=== PATIENT | male | born 1940 | race Caucasian/White ===

== ENCOUNTER 2022-02-11 14:42 | Inpatient (IN) ==
[2022-02-11] MEDS ORDERED: FAMOTIDINE 20MG IV PUSH 20 MG/5 ML SYR IV STA (15:41)
[2022-02-11] MEDS ORDERED: PANTOprazole 80 MG in DEXTROSE 5% 100 ML IV STA (15:41)
[2022-02-11] MEDS ORDERED: SODIUM CHLORIDE 0.9% 250 ML IV PRN ×3 (15:41→20:33)
[2022-02-11] MEDS ORDERED: SODIUM CHLORIDE 0.9% 500 ML IV SCH (15:45)
[2022-02-11 16:20] LABS: Basophils # (auto) 0.01 K/uL (0-0.2); Basophils % (auto) 0.1 %; Eosinophils # (auto) 0.18 K/uL (0-0.5); Eosinophils % (auto) 2.2 %; Hematocrit (blood only) 25.2 % (42-52); Hemoglobin 7.8 g/dL (14.0-18.0); Immature Granulocytes # (auto) 0.12 K/uL (0.00-0.02); Immature Granulocytes % (auto) 1.5 %; Lymphocytes # (auto) 1.35 K/uL (1.2-3.4); Lymphocytes % (auto) 16.8 %; Mean Corpuscular Hemoglobin 32.4 pg (25-34); Mean Corpuscular Volume 104.6 fL (80-100); Mean Platelet Volume 9.5 fL (7.4-10.4); Monocytes # (auto) 0.72 K/uL (0.11-0.59); Neutrophils # (auto) 5.64 K/uL (1.4-6.5); Neutrophils % (auto) 70.4 %; Platelet Count 195 K/uL (130-400); RDW Coefficient of Variation 20.3 % (11.5-14.5); RDW Standard Deviation 75.4 fL (36.4-46.3); Red Blood Count 2.41 M/uL (4.7-6.1); White Blood Count 8.02 K/uL (4.8-10.8)
--- NOTE | 2022-02-11 16:29 | Emergency Department Note ---
Impression & Plan Acute GI bleeding, Black stool, Anemia, Acute dehydration, Acute hyperkalemia ED Provider Note NAME: EVERETT MCMANUS AGE: 81 SEX: M : 1940 ARRIVES VIA: Ambulance INFORMANT: [Patient][nursing] ED PROVIDER(S): [Marbin Márquez MD] CHIEF COMPLAINT: GI bleeding HISTORY OF PRESENT ILLNESS: Patient is an 81-year-old male who underwent a recent procedure for aortic aneur ysm. He has been at rehab since being discharged. The patient is on aspirin, Plavix and is receiving Lovenox subcu. The patient has had at least a week of some darker, black stool. No pain. The patient did receive 2 packed red blood cell transfusions over the last week. Today, his hemoglobin was in the upper sevens, he was sent for evaluation. The patient did have his aspirin, Plavix and Lovenox held today. He currently feels fairly well. He is not short of breath. He has no abdominal pain. He does admit to a decreased appetite lately and a lack of wanting to eat. He has a feeding tube that is in the left upper quadrant. There has been no fever. He has not been coughing more than usual. He denies any recent fall or trauma. He has no history of previous GI bleeding. REVIEW OF SYSTEMS: See HPI for pertinent positives and negatives. A total of ten systems were reviewed and were otherwise negative. PMHx/PSHx: See Below SOCIAL HISTORY: See Below. PHYSICAL EXAM: GENERAL: Patient is in no acute distress. HEENT: No acute trauma, normocephalic atraumatic, mucous membranes dry, no nasal congestion, no scleral icterus. NECK: No stridor, no adenopathy, no meningismus, trachea is midline. LUNGS: Clear to auscultation bilaterally, no wheeze, no rhonchi, breath sounds equal. HEART: Very distant heart tones secondary to the history of COPD, rhythm seems regular. ABDOMEN: Soft, nontender, bowel sounds positive, no hernias, no peritonitis. Feeding tube in the left upper quadrant. EXTREMITIES: No cyanosis or edema, full range of motion of all the joints wit hout pain or difficulty, no signs for acute trauma. NEUROLOGIC: Oriented x 3, no acute motor or sensory deficits, no focal weakness. SKIN: No rash, no jaundice, no diaphoresis. Pale. DIFFERENTIAL DIAGNOSIS: Diverticulosis, AVM, coagulopathy, colitis, inflammatory bowel disease, malignancy, Nanda-Velez tear, esophagitis, peptic ulcer disease, variceal bleed, gastritis, epistaxis, fissure, hemorrhoids, as well as other pathologies. EMERGENCY DEPARTMENT COURSE/PROCEDURES: ECG: Indication was GI bleed. The ECG shows a sinus rhythm with a first- degree AV block. The rate is 83. There is a potential old septal infarct. There is no ST elevation, no PVCs. The QTc is 444. Continuous Cardiac Monitoring: An order was placed for continuous cardiac monitoring. The monitor shows a rate of 79 with normal sinus rhythm. Critical Care Note: I have personally spent 51 minutes of critical care time in the direct management of this patient. This includes bedside care, interpretation of diagnostic studies, and testing, discussion with consultants, patient, and family members, and other required patient management activities. This 51 minutes is in excess of all separately billable procedures. MEDICAL DECISION MAKING: There is no leukocytosis. The patient is anemic with a hemoglobin of 7.8. There is a normal platelet count. No coagulopathy. Potassium is a bit high at 5.2, BUN also somewhat elevated. There is a normal creatinine. Lactic acid level is not elevated making sepsis and bowel ischemia less likely. No worrisome liver enzyme elevation. ECG shows a sinus rhythm with a first-degree AV block, no obvious acute ischemia. Cardiac enzyme testing x1 is not consistent with acute cardiac injury. No evidence for pancreatitis by our te sting. Covid test was negative. Chest x-ray does not show pneumonia or CHF. Abdominal and pelvis CT does not show any leaking from his abdominal aneurysm repair. There is a chronic hematoma seen. No evidence for bowel obstruction, no evidence for active hemorrhage. The patient received IV saline, 500 cc. He was given IV Protonix, IV Pepcid. Blood was ordered for transfusion but held as his hemoglobin was above 7. I suspect his hemoglobin will drop with proper hydration though. A consent for a blood transfusion was signed and completed and placed on his chart. The patient presents with persistent black stool and presumed GI bleeding for the last week. He has already received 2 separate transfusions of packed red blood cells as an outpatient. His hemoglobin is low today and at this point, a hospital stay, further work-up is warranted. He likely is bleeding from an upper GI source and an endoscopy may be performed during this hospital stay. I did speak with the patient and case checker, the on-call hospitalist was consulted. Past Med/Surg History Medical History Abdominal aortic aneurysm - with rupture Abdominal pain with vomiting Acute renal failure Aortic aneurysm Aspiration pneumonia BPH (benign prostatic hyperplasia) Chronic kidney disease Chronic kidney disease (CKD) stage 3 Chronic obstructive pulmonary disease Congestive heart failure Coronary artery disease Delirium Hyperlipemia Hypertension Iliac artery aneurysm Ischemic heart disease PEG tube malfunction 01/21/2022 Peripheral vascular disease Peripheral vascular disease Severe malnutrition Surgical History Coronary angioplasty status with stent placements 2018 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 Social History Smoking Status: Former smoker Preferred Language: Jordanian Feels Safe at Home: Yes Allergies Allergies Allergy/AdvReac Type Severity Reaction Status Date / Time No Known Allergies Allergy Unverified 02/11/22 15:16 Home Meds Home Medications Medication Instructions Recorded Confirmed acetaminophen 650 mg/20.3 mL oral 650 mg PO Q4 PRN 02/08/22 02/11/22 solution atorvastatin 40 mg tablet 40 mg PO QDD 02/08/22 02/11/22 finasteride 5 mg tablet 5 mg PO DAILY 02/08/22 02/11/22 pantoprazole 40 mg granules 40 mg PO BID 02/08/22 02/11/22 delayed-release for susp in packet (Protonix) polyethylene glycol 3350 17 gram 17 g PO QDD PRN 02/08/22 02/11/22 oral powder packet sennosides 8.6 mg-docusate sodium 1 tab-cap PO QDD PRN 02/08/22 02/11/22 50 mg tablet (Senokot-S) sodium phosphates 19 gram-7 133 ml VT DAILY PRN 02/08/22 02/11/22 gram/118 mL enema (Enema) tamsulosin 0.4 mg capsule 0.4 mg PO DAILY 02/08/22 02/11/22 trazodone 50 mg tablet 50 mg PO HS 02/08/22 02/11/22 bisacodyl 10 mg rectal suppository 10 mg VT DAILY PRN 02/11/22 02/11/22 docusate sodium 100 mg capsule 100 mg PO BID 02/11/22 02/11/22 magnesium hydroxide 2,400 mg/10 mL 1,030 ml PO DAILY PRN 02/11/22 02/11/22 oral suspension (Milk Of Magnesia Concentrated) nystatin 100,000 unit/gram topical 1 applic TOPICAL BID 02/11/22 02/11/22 cream Results & Data (ED) Vital Signs Vital Signs - 24 hr 02/11/22 15:10 02/11/22 16:37 Temperature 36.8 C Temperature Source Oral Pulse Rate 82 Pulse Rate [Finger] 79 Pulse Rhythm Regular Pulse Rhythm [Finger] Regular Pulse Strength Normal Pulse Strength [Finger] Normal Respiratory Rate 18 18 Respiratory Effort / Characteristics Non-Labored Non-Labored Respiratory Depth Normal Normal Respiratory Pattern Regular Blood Pressure 120/59 L Blood Pressure [Left Arm] 130/70 Blood Pressure Mean 79 Blood Pressure Mean [Left Arm] 90 Blood Pressure Position Lying Blood Pressure Position [Left Arm] Sitting Pulse Oximetry 93 95 Oxygen Delivery Method Room Air Room Air Sepsis Recent Fever Within 48 Hours No Sepsis New/Unexplained Change in Mental Status No Sepsis Action Taken by Nursing No Action Required Home Medications Current Medication List: was personally reviewed by me Laboratory Data Attestation: I reviewed the patient's lab results. Result diagrams: 02/11/22 16:00 02/11/22 16:00 Lab Results 02/11/22 02/11/22 02/11/22 Range/Units 16:00 16:00 16:00 WBC 8.02 (4.8-10.8) K/uL RBC 2.41 L (4.7-6.1) M/uL Hgb 7.8 L (14.0-18.0) g/dL Hct 25.2 L (42-52) % MCV 104.6 H (80-100) fL MCH 32.4 (25-34) pg MCHC 31.0 L (32-36) g/dL RDW Std Deviation 75.4 H (36.4-46.3) fL RDW Coeff of Alejandra 20.3 H (11.5-14.5) % Plt Count 195 (130-400) K/uL MPV 9.5 (7.4-10.4) fL Immature Gran % (Auto) 1.5 % Neut % (Auto) 70.4 % Lymph % (Auto) 16.8 % Owsley % (Auto) 9.0 % Eos % (Auto) 2.2 % Baso % (Auto) 0.1 % Neut # (Auto) 5.64 (1.4-6.5) K/uL Lymph # (Auto) 1.35 (1.2-3.4) K/uL Owsley # (Auto) 0.72 H (0.11-0.59) K/uL Eos # (Auto) 0.18 (0-0.5) K/uL Baso # (Auto) 0.01 (0-0.2) K/uL Immature Gran # (Auto) 0.12 H (0.00-0.02) K/uL Polychromasia 1+ Poikilocytosis Present Anisocytosis Present PT (9.0-12.0) Seconds INR (0.9-1.1) APTT (21.0-31.0) Seconds PTT Ratio Sodium 140 (136-145) mmol/L Potassium 5.2 H (3.5-5.1) mmol/L Chloride 106 (98-107) mmol/L Carbon Dioxide 30 (21-32) mmol/L Anion Gap 4 (3-11) BUN 52 H (6-23) mg/dl Creatinine 1.03 (0.6-1.4) mg/dl Est Cr Clr Drug Dosing 47.2 ml/min Est GFR ( Amer) 78.0 ml/min Est GFR (Non-Af Amer) 67.3 ml/min BUN/Creatinine Ratio 50.5 H (10-20) Glucose 87 (70-99(Fasting)) mg/dl Lactate (0.4-2.0) mmol/L Calcium 8.4 L (8.5-10.1) mg/dl Ionized Calcium (1.12-1.32) mmol/L Total Bilirubin 0.5 (0.2-1.0) mg/dl AST 28 (13-39) U/L ALT 35 (7-52) U/L Alkaline Phosphatase 116 H (34-104) U/L Troponin I < 0.03 (0-0.04) ng/ml Total Protein 5.7 L (6.0-8.3) gm/dl Albumin 2.7 L (3.4-5.0) gm/dl Globulin 3.0 (2.5-4.0) gm/dl Albumin/Globulin Ratio 0.9 (0.9-2) Lipase 46 (11-82) U/L SARS-CoV-2, RNA, NAAT (NEGATIVE) Blood Type O Positive Antibody Screen NEGATIVE Crossmatch See Detail 02/11/22 02/11/22 02/11/22 Range/Units 16:00 17:10 17:22 WBC (4.8-10.8) K/uL RBC (4.7-6.1) M/uL Hgb (14.0-18.0) g/dL Hct (42-52) % MCV (80-100) fL MCH (25-34) pg MCHC (32-36) g/dL RDW Std Deviation (36.4-46.3) fL RDW Coeff of Alejandra (11.5-14.5) % Plt Count (130-400) K/uL MPV (7.4-10.4) fL Immature Gran % (Auto) % Neut % (Auto) % Lymph % (Auto) % Owsley % (Auto) % Eos % (Auto) % Baso % (Auto) % Neut # (Auto) (1.4-6.5) K/uL Lymph # (Auto) (1.2-3.4) K/uL Owsley # (Auto) (0.11-0.59) K/uL Eos # (Auto) (0-0.5) K/uL Baso # (Auto) (0-0.2) K/uL Immature Gran # (Auto) (0.00-0.02) K/uL Polychromasia Poikilocytosis Anisocytosis PT 11.2 (9.0-12.0) Seconds INR 1.1 (0.9-1.1) APTT 25.6 (21.0-31.0) Seconds PTT Ratio 0.9 Sodium (136-145) mmol/L Potassium (3.5-5.1) mmol/L Chloride (98-107) mmol/L Carbon Dioxide (21-32) mmol/L Anion Gap (3-11) BUN (6-23) mg/dl Creatinine (0.6-1.4) mg/dl Est Cr Clr Drug Dosing ml/min Est GFR ( Amer) ml/min Est GFR (Non-Af Amer) ml/min BUN/Creatinine Ratio (10-20) Glucose (70-99(Fasting)) mg/dl Lactate 0.6 (0.4-2.0) mmol/L Calcium (8.5-10.1) mg/dl Ionized Calcium (1.12-1.32) mmol/L Total Bilirubin (0.2-1.0) mg/dl AST (13-39) U/L ALT (7-52) U/L Alkaline Phosphatase (34-104) U/L Troponin I (0-0.04) ng/ml Total Protein (6.0-8.3) gm/dl Albumin (3.4-5.0) gm/dl Globulin (2.5-4.0) gm/dl Albumin/Globulin Ratio (0.9-2) Lipase (11-82) U/L SARS-CoV-2, RNA, NAAT NEGATIVE (NEGATIVE) Blood Type Antibody Screen Crossmatch 02/11/22 Range/Units 17:22 WBC (4.8-10.8) K/uL RBC (4.7-6.1) M/uL Hgb (14.0-18.0) g/dL Hct (42-52) % MCV (80-100) fL MCH (25-34) pg MCHC (32-36) g/dL RDW Std Deviation (36.4-46.3) fL RDW Coeff of Alejandra (11.5-14.5) % Plt Count (130-400) K/uL MPV (7.4-10.4) fL Immature Gran % (Auto) % Neut % (Auto) % Lymph % (Auto) % Owsley % (Auto) % Eos % (Auto) % Baso % (Auto) % Neut # (Auto) (1.4-6.5) K/uL Lymph # (Auto) (1.2-3.4) K/uL Owsley # (Auto) (0.11-0.59) K/uL Eos # (Auto) (0-0.5) K/uL Baso # (Auto) (0-0.2) K/uL Immature Gran # (Auto) (0.00-0.02) K/uL Polychromasia Poikilocytosis Anisocytosis PT (9.0-12.0) Seconds INR (0.9-1.1) APTT (21.0-31.0) Seconds PTT Ratio Sodium (136-145) mmol/L Potassium (3.5-5.1) mmol/L Chloride (98-107) mmol/L Carbon Dioxide (21-32) mmol/L Anion Gap (3-11) BUN (6-23) mg/dl Creatinine (0.6-1.4) mg/dl Est Cr Clr Drug Dosing ml/min Est GFR ( Amer) ml/min Est GFR (Non-Af Amer) ml/min BUN/Creatinine Ratio (10-20) Glucose (70-99(Fasting)) mg/dl Lactate (0.4-2.0) mmol/L Calcium (8.5-10.1) mg/dl Ionized Calcium 1.14 (1.12-1.32) mmol/L Total Bilirubin (0.2-1.0) mg/dl AST (13-39) U/L ALT (7-52) U/L Alkaline Phosphatase (34-104) U/L Troponin I (0-0.04) ng/ml Total Protein (6.0-8.3) gm/dl Albumin (3.4-5.0) gm/dl Globulin (2.5-4.0) gm/dl Albumin/Globulin Ratio (0.9-2) Lipase (11-82) U/L SARS-CoV-2, RNA, NAAT (NEGATIVE) Blood Type Antibody Screen Crossmatch Administered Medications Discontinued Medications Sodium Chloride (Nss) 500 mls @ 999 mls/hr IV .Q31M PRAVIN Stop: 02/11/22 16:15 Last Infusion: 02/11/22 17:02 Dose: 999 mls/hr Documented by: [id number] Admin: 02/11/22 16:31 Dose: 999 mls/hr Documented by: [id number] Famotidine (Pepcid 20mg Iv Push) 20 mg in 5 mls @ 2.5 mls/min IV NOW STA Stop: 02/11/22 15:42 Last Admin: 02/11/22 16:32 Dose: 2.5 mls/min Documented by: [id number] Pantoprazole Sodium 80 mg/ (Dextrose) 100 mls @ 400 mls/hr IV ONE STA Stop: 02/11/22 15:55 Last Infusion: 02/11/22 16:47 Dose: 400 mls/hr Documented by: [id number] Admin: 02/11/22 16:32 Dose: 400 mls/hr Documented by: [id number] Ioversol (Optiray 320 100ml) 95 ml IV ONCE ONE Stop: 02/11/22 18:20 Last Admin: 02/11/22 18:24 Dose: 95 ml Documented by: [id number] Imaging Data Radiologist's Impression: Abdomen/Pelvis CT 02/11/22 15:41 CT abd pelvis IV con only CLINICAL HISTORY: gi bleeding . Previous aortoiliac bypass. COMPARISON STUDY: No previous studies for comparison. CT DOSE: 292.18 mGy.cm TECHNIQUE: Standard CT of the Abdomen and Pelvis was performed with IV contrast. A dose lowering technique was utilized adhering to the principles of ALARA. Contrast Volume: Optiray 320, 95 ml. The patient did not receive oral contrast. FINDINGS: Lung base: The heart is enlarged with previous aortic valve replacement. There is elevation of the right hemidiaphragm with crowding the bronchovascular markings at the right lung base. Lung bases are otherwise clear. Abdominal cavity: There is no evidence for abdominal mass, adenopathy or ascites. However, there is evidence for a large retroperitoneal hematoma on the right. It has a chronic appearance with no increased attenuation density of the fluid and no contrast extending into the fluid collection. It is behind the right kidney and extends for a craniocaudad distance of approximately 17 cm. There is approximately 8.4 cm in width and 5.2 cm in AP diameter. It has a mildly enhancing wall characteristic of a chronic hematoma. No free abdominal or pelvic fluid is seen. Liver: There is homogeneous attenuation of the liver parenchyma. There is no evidence for enhancing mass lesion. There is mild hepatomegaly. Spleen: There is homogeneous attenuation of the splenic parenchyma. There is no enhancing mass lesion. There is mild splenomegaly. Pancreas: There is homogeneous attenuation of the pancreatic parenchyma. There is no evidence for mass lesion or peripancreatic fluid collection. Gall Bladder: The gallbladder is partially contracted. There appears to be pericholecystic edema present. Follow-up gallbladder ultrasound is recommended for further evaluation. Adrenal glands: The adrenal glands are normal in size and attenuation. There is no evidence for enhancing mass lesion. Kidneys: There is homogeneous attenuation of the renal parenchyma bilaterally. There is moderate hydronephrosis and hydroureter on the right to the level of the retroperitoneal hematoma. This is most likely compressing the distal ureter. No renal calculi are seen. There is no evidence for left-sided hydronephrosis or hydroureter. Bilateral renal cysts are present. No enhancing renal masses are identified. Bowel: A PEG tube is in place. The bowel loops are normally placed within the abdomen and pelvis without evidence for dilatation or obstruction. There is no evidence for mass lesion. There are no inflammatory changes present. There is no evidence for free air. Bladder: The bladder is distended with no evidence for focal mass, calculus or diverticulum. There is diffuse thickening of bladder wall characteristic of chronic bladder outlet obstruction. : There is no evidence for pelvic mass or adenopathy. There is no evidence for pelvic ascites. The prostate is mildly to moderately large. Vasculature: There is an aortobiiliac graft in place for a large abdominal aortic aneurysm. There is no evidence for leakage of contrast outside the stent. 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 The stent is in place extending through the dilatation. Additionally, there is a fluid collection seen surrounding the proximal right femoral artery. This measures approximately 3.9 x 3.5 cm and is suspicious for pseudoaneurysm. Ultrasound could be obtained for further evaluation. There is no contrast present within this fluid collection. Osseous structures: There is no acute osseous pathology. The patient is status post previous internal fixation right femoral neck. Degenerative changes are present within the spine. IMPRESSION: 1. 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 2. Status post aortobiiliac grafting with no evidence for leakage from the graft. 3. 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 4. Contracted gallbladder with evidence for pericholecystic edema. Gallbladder ultrasound is recommended for further evaluation. 5. Splenomegaly. 6. Additional nonacute findings are delineated above. ACT 112: Negative or not required by law. Electronically signed by: Dionicio Boswell M.D. 02/11/2022 6:50 PM Chest X-Ray 02/11/22 15:41 XR chest 1V portable CLINICAL HISTORY: gi bleeding. Evaluate cardiopulmonary status COMPARISON STUDY: No previous studies for comparison. TECHNIQUE: 1 view of the chest FINDINGS: Single frontal view of the chest demonstrates the cardiomediastinal silhouette to be within normal limits. There are patchy, ill-defined alveolar opacities pre sent involving both lungs, left greater than right. This probably represents chronic fibrotic change. However, an early viral type pneumonitis cannot be excluded. Follow-up would be helpful for further evaluation. There is no evidence for pleural effusion. There is no evidence for vascular congestion. There is no acute osseous pathology. There is evidence for an aortic graft in place. IMPRESSION: 1. Patchy ill-defined alveolar opacities involving both lungs, left greater than right. This probably represents chronic fibrotic change. However, early viral type pneumonitis cannot be excluded. ACT 112: Negative or not required by law. Electronically signed by: Dionicio Boswell M.D. 02/11/2022 4:28 PM Discharge Plan Visit Data Chief Complaint: GI Bleed ED Provider: Marbin Márquez ED Midlevel Provider: Vladislav Paris Discharge Problem: Acute GI bleeding, Black stool, Anemia, Acute dehydration, Acute hyperkalemia Patient Disposition: Admitted As Inpatient Condition: Fair Discharge Instructions Interventions: ED Discharge Assessment Last Done: 02/11/22 18:20
--- NOTE | 2022-02-11 16:29 | XRay Report ---
XR chest 1V portable CLINICAL HISTORY: gi bleeding. Evaluate cardiopulmonary status COMPARISON STUDY: No previous studies for comparison. TECHNIQUE: 1 view of the chest FINDINGS: Single frontal view of the chest demonstrates the cardiomediastinal silhouette to be within normal li mits. There are patchy, ill-defined alveolar opacities present involving both lungs, left greater daljit n right. This probably represents chronic fibrotic change. However, an early viral type pneumonitis c annot be excluded. Follow-up would be helpful for further evaluation. There is no evidence for pleura l effusion. There is no evidence for vascular congestion. There is no acute osseous pathology. There is evidence for an aortic graft in place. IMPRESSION: 1. Patchy ill-defined alveolar opacities involving both lungs, left greater than right. This probably represents chronic fibrotic change. However, early viral type pneumonitis cannot be excluded. ACT 112: Negative or not required by law. Electronically signed by: Dionicio Boswell M.D. 02/11/2022 4:28 PM
[2022-02-11 16:33] LABS: INR 1.1 (0.9-1.1); Partial Thromboplastin Ratio 0.9; Partial Thromboplastin Time 25.6 Seconds (21.0-31.0); Prothrombin Time 11.2 Seconds (9.0-12.0)
[2022-02-11 16:41] LABS: Troponin I < 0.03 ng/ml (0-0.04)
[2022-02-11 16:43] LABS: Anisocytosis Present; Poikilocytosis Present; Polychromasia 1+
[2022-02-11 16:57] LABS: Alanine Aminotransferase 35 U/L (7-52); Albumin Globulin Ratio 0.9 (0.9-2); Albumin Level 2.7 gm/dl (3.4-5.0); Alkaline Phosphatase 116 U/L (34-104); Anion Gap 4 (3-11); Aspartate Aminotransferase 28 U/L (13-39); BUN Creatinine Ratio 50.5 (10-20); Bilirubin,Total 0.5 mg/dl (0.2-1.0); Blood Urea Nitrogen 52 mg/dl (6-23); Calcium 8.4 mg/dl (8.5-10.1); Carbon Dioxide 30 mmol/L (21-32); Chloride 106 mmol/L (98-107); Creatinine Clr Calc Pharmacy 47.2 ml/min; Est GFR (Non-African American) 67.3 ml/min; Glucose 87 mg/dl (70-99(Fasting)); Lipase 46 U/L (11-82); Potassium 5.2 mmol/L (3.5-5.1); Sodium 140 mmol/L (136-145); Total Protein 5.7 gm/dl (6.0-8.3)
--- NOTE | 2022-02-11 17:00 | History & Physical Report ---
Date of Service February 11, 2022 Assessment & Plan (1) GI bleed: Plan: GI Bleed unspecified source- likely UGI with dark stools and elevated BUN - Risk factor acute illness and stay in ICU with PEG tube placement, on ASA and Lovenox - Ischemic colitis following AAA repair also noted- with endoscopy performed at that time - Protonix drip already started in EMD- will continue as this is already in place- transition to BID dosing when appropriate - GI consultation placed- appreciate assistance - NPO - Transfuse 1 unit PRBC now for symptomatic anemia and likely continued bleeding - CBC tonight and in AM - CTA abd/pelvis pending (2) Blood loss anemia: Plan: As above- CTA - pending - Likely related to UGI bleed with presentation history - R/o repair leak or other occult blood loss - If HGB continues to downtrend or shock without GI source- repeat CTA of aorta (3) CKD (chronic kidney disease), stage III: Plan: [employer] stable BUN elevated likely to # 1 - replete volume with PRBC - Follow - avoid further nephrotoxic medications as able (4) Abnormal CT of the abdomen: Plan: Noting right retroperitoneal collection as well as right femoral aneurysm - Will obtain ultrasound of the right femoral to evaluate- not the acute cause of his decreased HGB - - 3.9 x 3.5 cm and is suspicious for pseudoaneurysm - Appears as old retroperitoneal without contrast infiltration - Note of previous AAA with endovascular repair inside previous aneurysm (5) Abdominal aortic aneurysm: Plan: Repair reported 2015 and in February 09 presented to [facility] with rupture and shock - Repaired - hold Lovenox and ASA- would need to restart as soon as feasible from bleeding perspective - Follow BP - Follow CTA abdomen and pelvis (6) Hyperlipemia: Plan: Continue statin (7) Severe malnutrition: Plan: BMI 18- tolerating minced and moist diet per [facility] notes as well as PEG tube support feeding - resume following GI evaluation - NPO for now (8) Coronary artery disease: Plan: Unsure of diagnosis- denies he has had history of AK - Hold ASA as above - BP controlled - not on any other disease modifying medications (9) Congestive heart failure: Plan: As above- Unsure of etiology- likely HFpEF - did need diuresed following blood transfusion (10) BPH (benign prostatic hyperplasia): Plan: Hold his tamsulosin until BP stable Continue Finasteride (11) Severe muscle deconditioning: Plan: PT/OT/ nutritional support - Post extensive ICU stay - continue with physical exam History of Present Illness Primary Care Provider: [facility] 81 YOM with past medical history of: AAA with repair following rupture (01/31/22) in the setting of previous AAA repair, ischemic colitis, COPD, CHF, CKD, CAD, PVD, BPH, CVA. Patient is referred from [facility] where he is a resident following his AAA repair with prolonged ICU course and shock in January 2022, for reported 4 days of black dark bowel movements, anemia with decreasing hgb at [facility] from 8.1 to 7.8 despite PRBC given on 02/07 and 02/08. His aspirin and Lovenox have been held for the past 24 hours. In the EMD he was started on Protonix drip following bolus, NPO, CTA of the abdomen and pelvis, type and crossed and consented by EMD. Hospitalist service was consulted for admission. The patient is symptomatic from his anemia, with dyspnea at rest and worsening with exertion, dizziness with standing, and feeling more fatigued than when he first got to [facility]. He is stable with his HR and BP at this time, labs are remarkable for slight increase in his BUN to 52 and K 5.2, [employer]BI[employer] DES[employer]ER is stable at 1.03. Skin is warm and pulses are strong, he denies any abdominal pain or nausea and/or vomiting but endorses decreased appetite but tolerating PEG tube feedings. Patient will be admitted to PCU, will obtain large bore IV, kept NPO, continue Protonix drip and consult gastroenterology. Patient has few records here but also does not believe he has ever had an EGD or Colonoscopy. Patient wishes to be DNR/DNI- if this would be emergent for procedure or operation the patient states that he would want intubation for that. COVID test on admission is: NEGATIVE Allergies Allergy/AdvReac Type Severity Reaction Status Date / Time No Known Allergies Allergy Unverified 02/11/22 15:16 Home Medications Medication Instructions Recorded Confirmed Type acetaminophen 650 mg/20.3 mL oral 650 mg PO Q4 PRN 02/08/22 02/11/22 History solution atorvastatin 40 mg tablet 40 mg PO QDD 02/08/22 02/11/22 History finasteride 5 mg tablet 5 mg PO DAILY 02/08/22 02/11/22 History pantoprazole 40 mg granules 40 mg PO BID 02/08/22 02/11/22 History delayed-release for susp in packet (Protonix) polyethylene glycol 3350 17 gram 17 g PO QDD PRN 02/08/22 02/11/22 History oral powder packet sennosides 8.6 mg-docusate sodium 1 tab-cap PO QDD PRN 02/08/22 02/11/22 History 50 mg tablet (Senokot-S) sodium phosphates 19 gram-7 133 ml NE DAILY PRN 02/08/22 02/11/22 History gram/118 mL enema (Enema) tamsulosin 0.4 mg capsule 0.4 mg PO DAILY 02/08/22 02/11/22 History trazodone 50 mg tablet 50 mg PO HS 02/08/22 02/11/22 History bisacodyl 10 mg rectal suppository 10 mg NE DAILY PRN 02/11/22 02/11/22 History docusate sodium 100 mg capsule 100 mg PO BID 02/11/22 02/11/22 History magnesium hydroxide 2,400 mg/10 mL 1,030 ml PO DAILY PRN 02/11/22 02/11/22 History oral suspension (Milk Of Magnesia Concentrated) nystatin 100,000 unit/gram topical 1 applic TOPICAL BID 02/11/22 02/11/22 History cream Past Med/Surg History Medical History Abdominal aortic aneurysm - with rupture Abdominal pain with vomiting Acute renal failure Aortic aneurysm Aspiration pneumonia BPH (benign prostatic hyperplasia) Chronic kidney disease Chronic kidney disease (CKD) stage 3 Chronic obstructive pulmonary disease Congestive heart failure Coronary artery disease Delirium Hyperlipemia Hypertension Iliac artery aneurysm Ischemic heart disease PEG tube malfunction 01/21/2022 Peripheral vascular disease Peripheral vascular disease Severe malnutrition Surgical History Coronary angioplasty status with stent placements 2018 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 Social History Smoking Status: Former smoker Preferred Language: Maltese Feels Safe at Home: Yes Review of Systems Review of Systems: REVIEW OF SYSTEMS: Constitutional: No fever, sweats or chills Eyes: No diplopia, no worsening or blurred vision ENT: normal hearing, Respiratory: (+) dyspnea at rest or on exertion, No cough, sputum, Cardiovascular: (+) light headedness standing, No chest pain, tightness or palpitations Abdomen: (+) dark stools, PEG tube, No pain, nausea, vomiting, diarrhea or constipation Musculoskeletal: No joint pain, calf pain, swelling Neurologic: (+) chronic weakness, NO numbness/tingling, or balance problems Psychiatric: No anxiety or depression Skin: No rash or itch Physical Exam Physical Exam: PHYSICAL EXAM: General: awake, alert, no apparent distress Head: Normocephalic, atraumatic ENT: PERRLA, EOMI, no pharyngeal exudate, mucous membranes dry Neuro: AAO x 3, speech clear and appropriate, strength intact bilaterally 5/5, sensation intact and equal all extremities and dermatomes, no pronator drift Chest: equal rise and fall of the chest, no accessory muscle use, no heaves or thrills, Clear to auscultation, on room air, Cardiac: Regular rate and rhythm, telemetry reviewed, skin warm dry, cap refill <3 seconds, peripheral pulses +2 no JVD, no murmur, no edema GI: NABS x 4 quadrants, soft, nontender to palpation, no rebound, guarding or tenderness, PEG tube in place : Spontaneously voiding, no pain, no CVA tenderness, Extremities: Normal inspection, no peripheral edema or erythema, calfs nontender to palpation Psych: Normal mood and affect Skin: no rash or erythema Results & Data Results & Data ([facility]) Vital Signs (Past 12 Hours) Vital Signs Temp Pulse Resp BP Pulse Ox 02/11/22 15:10 36.8 C 82 18 120/59 L 93 Laboratory Results Abnormal lab results 02/11/22 02/11/22 02/11/22 Range/Units 16:00 16:00 16:00 RBC 2.41 L (4.7-6.1) M/uL Hgb 7.8 L (14.0-18.0) g/dL Hct 25.2 L (42-52) % MCV 104.6 H (80-100) fL MCHC 31.0 L (32-36) g/dL RDW Std Deviation 75.4 H (36.4-46.3) fL RDW Coeff of Alejandra 20.3 H (11.5-14.5) % [place] # (Auto) 0.72 H (0.11-0.59) K/uL Immature Gran # (Auto) 0.12 H (0.00-0.02) K/uL Potassium 5.2 H (3.5-5.1) mmol/L BUN 52 H (6-23) mg/dl BUN/Creatinine Ratio 50.5 H (10-20) Calcium 8.4 L (8.5-10.1) mg/dl Alkaline Phosphatase 116 H (34-104) U/L Total Protein 5.7 L (6.0-8.3) gm/dl Albumin 2.7 L (3.4-5.0) gm/dl Crossmatch See Detail Diagnostic Findings CT abd pelvis IV con only CLINICAL HISTORY: gi bleeding . Previous aortoiliac bypass. COMPARISON STUDY: No previous studies for comparison. CT DOSE: 292.18 mGy.cm TECHNIQUE: Standard CT of the Abdomen and Pelvis was performed with IV contrast. A dose lowering technique was utilized adhering to the principles of ALARA. Contrast Volume: Optiray 320, 95 ml. The patient did not receive oral contrast. FINDINGS: Lung base: The heart is enlarged with previous aortic valve replacement. There is elevation of the right hemidiaphragm with crowding the bronchovascular markings at the right lung base. Lung bases are otherwise clear. Abdominal cavity: There is no evidence for abdominal mass, adenopathy or ascite s. However, there is evidence for a large retroperitoneal hematoma on the right. It has a chronic appearance with no increased attenuation density of the fluid and no contrast extending into the fluid collection. It is behind the right kidney and extends for a craniocaudad distance of approximately 17 cm. There is approximately 8.4 cm in width and 5.2 cm in AP diameter. It has a mildly enhancing wall characteristic of a chronic hematoma. No free abdominal or pelvic fluid is seen. Liver: There is homogeneous attenuation of the liver parenchyma. There is no evidence for enhancing mass lesion. There is mild hepatomegaly. Spleen: There is homogeneous attenuation of the splenic parenchyma. There is no enhancing mass lesion. There is mild splenomegaly. Pancreas: There is homogeneous attenuation of the pancreatic parenchyma. There is no evidence for mass lesion or peripancreatic fluid collection. Gall Bladder: The gallbladder is partially contracted. There appears to be pericholecystic edema present. Follow-up gallbladder ultrasound is recommended for further evaluation. Adrenal glands: The adrenal glands are normal in size and attenuation. There is no evidence for enhancing mass lesion. Kidneys: There is homogeneous attenuation of the renal parenchyma bilaterally. There is moderate hydronephrosis and hydroureter on the right to the level of the retroperitoneal hematoma. This is most likely compressing the distal ureter. No renal calculi are seen. There is no evidence for left-sided hydronephrosis or hydroureter. Bilateral renal cysts are present. No enhancing renal masses are identified. Bowel: A PEG tube is in place. The bowel loops are normally placed within the abdomen and pelvis without evidence for dilatation or obstruction. There is no evidence for mass lesion. There are no inflammatory changes present. There is no evidence for free air. Bladder: The bladder is distended with no evidence for focal mass, calculus or diverticulum. There is diffuse thickening of bladder wall characteristic of chronic bladder outlet obstruction. : There is no evidence for pelvic mass or adenopathy. There is no evidence for pelvic ascites. The prostate is mildly to moderately large. Vasculature: There is an aortobiiliac graft in place for a large abdominal aortic aneurysm. There is no evidence for leakage of contrast outside the stent. 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 The stent is in place extending through the dilatation. Additionally, there is a fluid collection seen surrounding the proximal right femoral artery. This measures ap proximately 3.9 x 3.5 cm and is suspicious for pseudoaneurysm. Ultrasound could be obtained for further evaluation. There is no contrast present within this fluid collection. Osseous structures: There is no acute osseous pathology. The patient is status post previous internal fixation right femoral neck. Degenerative changes are present within the spine. IMPRESSION: 1. 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 2. Status post aortobiiliac grafting with no evidence for leakage from the graft. 3. 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 4. Contracted gallbladder with evidence for pericholecystic edema. Gallbladder ultrasound is recommended for further evaluation. 5. Splenomegaly. 6. Additional nonacute findings are delineated above. XR chest 1V portable CLINICAL HISTORY: gi bleeding. Evaluate cardiopulmonary status COMPARISON STUDY: No previous studies for comparison. TECHNIQUE: 1 view of the chest FINDINGS: Single frontal view of the chest demonstrates the cardiomediastinal silhouette to be within normal limits. There are patchy, ill-defined alveolar opacities present involving both lungs, left greater than right. This probably represents chronic fibrotic change. However, an early viral type pneumonitis cannot be excluded. Follow-up would be helpful for further evaluation. There is no evidence for pleural effusion. There is no evidence for vascular congestion. There is no acute osseous pathology. There is evidence for an aortic graft in place. IMPRESSION: 1. Patchy ill-defined alveolar opacities involving both lungs, left greater than right. This probably represents chronic fibrotic change. However, early viral type pneumonitis cannot be excluded. Medications Administered Discontinued Medications Sodium Chloride (Nss) 500 mls @ 999 mls/hr IV .Q31M PRAVIN Stop: 02/11/22 16:15 Last Admin: 02/11/22 16:31 Dose: 999 mls/hr Documented by: [id number] Famotidine (Pepcid 20mg Iv Push) 20 mg in 5 mls @ 2.5 mls/min IV NOW STA Stop: 02/11/22 15:42 Last Admin: 02/11/22 16:32 Dose: 2.5 mls/min Documented by: [id number] Pantoprazole Sodium 80 mg/ (Dextrose) 100 mls @ 400 mls/hr IV ONE STA Stop: 02/11/22 15:55 Last Infusion: 02/11/22 16:47 Dose: 400 mls/hr Documented by: [id number] Admin: 02/11/22 16:32 Dose: 400 mls/hr Documented by: [id number] ECG Additional Comments: Sinus rhythm with 1st degree A-V block Septal infarct , age undetermined Abnormal ECG No previous ECGs available Code Status & VTE Plan Code Status CODE: DNR/DNI VTE: SCDs- chemoprophy on hold until eval GI Supervising Physician Co-Signing Physician Notes I personally examined the patient and verified all milligan points of history and exam, discussed case, and agree with decision making with Buzz PHAM no belly pain. feeling reasonably OK but fatigued. [facility] notes reviewed vitals noted nad heent nc at mmm abd soft nd nt no guarding no rebound anemia/melena -most likely GI source - treating as stress ulcer until proven otherwise given recent critical care -CT reviewed w radiology personally over the phone by ANKIT Kebede (i was present during this as well) and nothing surrounding vasculature appears acute/appears consistent with leak -transfuse given symptoms; fortunately hemodynamically stable -GI eval otherwise as above PG Care Time/CCT Total # of Minutes Spent Total Time Spent with Patient: Total time spent is greater than 50% in coordination of care (as documented) at patient's floor/unit and/or counseling patient: Coding Level of Care Code 69057 Initial Inpt Care Lvl 3 Diagnoses CKD (chronic kidney disease), stage III N18.30 GI bleed K92.2 Blood loss anemia D50.0 Hyperlipemia E78.5 Severe malnutrition E43 Coronary artery disease I25.10 Congestive heart failure I50.9 BPH (benign prostatic hyperplasia) N40.0 Abdominal aortic aneurysm I71.4 Severe muscle deconditioning R29.[address] of the abdomen R93.5
[2022-02-11] MEDS ORDERED: OPTIRAY 320 100ml IV ONE (18:19)
[2022-02-11] MEDS ORDERED: DOCUSATE SODIUM/SENNA 50/8.6MG TAB PO PRN (18:47)
[2022-02-11] MEDS ORDERED: ONDANSETRON INJ 2 MG/ML 2 ML VIAL IV PRN (18:47)
[2022-02-11] MEDS ORDERED: ACETAMINOPHEN 325 MG TAB PO PRN (18:47)
--- NOTE | 2022-02-11 18:52 | CT Scan Report ---
CT abd pelvis IV con only CLINICAL HISTORY: gi bleeding . Previous aortoiliac bypass. COMPARISON STUDY: No previous studies for comparison. CT DOSE: 292.18 mGy.cm TECHNIQUE: Standard CT of the Abdomen and Pelvis was performed with IV contrast. A dose lowering shad hnique was utilized adhering to the principles of ALARA. Contrast Volume: Optiray 320, 95 ml. The patient did not receive oral contrast. FINDINGS: Lung base: The heart is enlarged with previous aortic valve replacement. There is elevation of the ri ght hemidiaphragm with crowding the bronchovascular markings at the right lung base. Lung bases are o therwise clear. Abdominal cavity: There is no evidence for abdominal mass, adenopathy or ascites. However, there is e vidence for a large retroperitoneal hematoma on the right. It has a chronic appearance with no increa sed attenuation density of the fluid and no contrast extending into the fluid collection. It is behin d the right kidney and extends for a craniocaudad distance of approximately 17 cm. There is approxima tely 8.4 cm in width and 5.2 cm in AP diameter. It has a mildly enhancing wall characteristic of a ch ronic hematoma. No free abdominal or pelvic fluid is seen. Liver: There is homogeneous attenuation of the liver parenchyma. There is no evidence for enhancing m ass lesion. There is mild hepatomegaly. Spleen: There is homogeneous attenuation of the splenic parenchyma. There is no enhancing mass lesion . There is mild splenomegaly. Pancreas: There is homogeneous attenuation of the pancreatic parenchyma. There is no evidence for mas s lesion or peripancreatic fluid collection. Gall Bladder: The gallbladder is partially contracted. There appears to be pericholecystic edema pres ent. Follow-up gallbladder ultrasound is recommended for further evaluation. Adrenal glands: The adrenal glands are normal in size and attenuation. There is no evidence for enhan cing mass lesion. Kidneys: There is homogeneous attenuation of the renal parenchyma bilaterally. There is moderate hydr onephrosis and hydroureter on the right to the level of the retroperitoneal hematoma. This is most li roddy compressing the distal ureter. No renal calculi are seen. There is no evidence for left-sided hy dronephrosis or hydroureter. Bilateral renal cysts are present. No enhancing renal masses are identif ied. Bowel: A PEG tube is in place. The bowel loops are normally placed within the abdomen and pelvis with out evidence for dilatation or obstruction. There is no evidence for mass lesion. There are no inflam matory changes present. There is no evidence for free air. Bladder: The bladder is distended with no evidence for focal mass, calculus or diverticulum. There is diffuse thickening of bladder wall characteristic of chronic bladder outlet obstruction. : There is no evidence for pelvic mass or adenopathy. There is no evidence for pelvic ascites. The prostate is mildly to moderately large. Vasculature: There is an aortobiiliac graft in place for a large abdominal aortic aneurysm. There is no evidence for leakage of contrast outside the stent. Aneurysmal dilatation of the right iliac arter y is also present. The stent is in place extending through the dilatation. Additionally, there is a f luid collection seen surrounding the proximal right femoral artery. This measures approximately 3.9 x 3.5 cm and is suspicious for pseudoaneurysm. Ultrasound could be obtained for further evaluation. Th ere is no contrast present within this fluid collection. Osseous structures: There is no acute osseous pathology. The patient is status post previous internal fixation right femoral neck. Degenerative changes are present within the spine. IMPRESSION: 1. Evidence for a large, chronic retroperitoneal hematoma on the right with no evidence for active bl eeding at this time. 2. Status post aortobiiliac grafting with no evidence for leakage from the graft. 3. 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 4. Contracted gallbladder with evidence for pericholecystic edema. Gallbladder ultrasound is recommen ded for further evaluation. 5. Splenomegaly. 6. Additional nonacute findings are delineated above. ACT 112: Negative or not required by law. Electronically signed by: Dionicio Boswell M.D. 02/11/2022 6:50 PM
[2022-02-11] MEDS: NICOTINE 14 MG/24 HR PATCH TD SCH (20:00)
[2022-02-11] MEDS ORDERED: FAMOTIDINE 20 MG in SYRINGE 3 ML IV ONE (20:38)
--- NOTE | 2022-02-11 21:13 | Ultrasound Report ---
US arterial duplex LE RT groin CLINICAL HISTORY: suspect pseudoaneurysm right femoral only. COMPARISON: CT of the abdomen and pelvis from 02/11/2021 TECHNIQUE: Duplex sonography of right groin was performed to evaluate for pseudoaneurysm of the righ t common carotid artery FINDINGS: Arreola scale, Doppler spectral analysis, and color imaging performed. There is an incision site present within the right groin with multiple cystic areas under the incisio n site. Largest measures 4.7 x 3.9 x 2.7 cm and is most characteristic of a seroma. There is no evide nce for a pseudoaneurysm of the right common carotid artery.. IMPRESSION: 1. Evidence for a seroma within the right groin with no ultrasound evidence for a pseudoaneurysm. ACT 112: Negative or not required by law. Electronically signed by: Dionicio Boswell M.D. 02/11/2022 9:11 PM
[2022-02-11] MEDS: PANTOprazole 40 MG in SYRINGE 0 ML IV SCH (21:17)
[2022-02-11] MEDS: traZODone HCL 50 MG TAB PO SCH (23:46)
[2022-02-12 07:38] LABS: Basophils # (auto) 0.01 K/uL (0-0.2); Basophils % (auto) 0.1 %; Eosinophils # (auto) 0.14 K/uL (0-0.5); Hematocrit (blood only) 28.8 % (42-52); Immature Granulocytes # (auto) 0.12 K/uL (0.00-0.02); Immature Granulocytes % (auto) 1.7 %; Lymphocytes # (auto) 1.19 K/uL (1.2-3.4); Lymphocytes % (auto) 17.2 %; Mean Corpuscular Hgb Conc 31.3 g/dL (32-36); Mean Corpuscular Volume 102.5 fL (80-100); Mean Platelet Volume 9.3 fL (7.4-10.4); Monocytes # (auto) 0.66 K/uL (0.11-0.59); Monocytes % (auto) 9.5 %; Neutrophils % (auto) 69.5 %; Platelet Count 188 K/uL (130-400); RDW Coefficient of Variation 20.9 % (11.5-14.5); RDW Standard Deviation 77.3 fL (36.4-46.3); Red Blood Count 2.81 M/uL (4.7-6.1); White Blood Count 6.92 K/uL (4.8-10.8)
[2022-02-12 07:57] LABS: Anisocytosis Present; Polychromasia 1+
[2022-02-12 07:58] LABS: BUN Creatinine Ratio 37.7 (10-20); Calcium 8.3 mg/dl (8.5-10.1); Creatinine Clr Calc Pharmacy 41.3 ml/min; Est GFR (African American) 75.4 ml/min
[2022-02-12] MEDS: FINASTERIDE 5 MG TAB PO SCH ×2 (08:11→08:24)
[2022-02-12] MEDS: NICOTINE 14 MG/24 HR PATCH TD SCH (08:23)
[2022-02-12] MEDS: PANTOprazole 40 MG in SYRINGE 0 ML IV SCH ×2 (08:23→20:22)
[2022-02-12] MEDS: D5W AND NSS 1,000 ML IV SCH (09:54)
--- NOTE | 2022-02-12 10:34 | Gastrointestinal Consultation ---
Date of Consultation February 12, 2022 Assessment & Plan (1) Black stool: (2) Anemia: EGD today by Dr. Mane. Procedure was explained in detail to the patient including risks. Pt agrees to go forward with the procedure. Agree with IV twice daily PPI. Please keep n.p.o. Further recommendations to follow endoscopy. Supervising Physician Co-Signing Physician Notes I performed a history and physical examination of the patient today, including specifically on physical exam - soft abdomen. I have discussed the patient's management with the advanced practitioner. Please refer to the nurse practitioner's note for the documented findings and plan of care. EGD today History of Present Illness Reason for Consultation: UGI Bleed- anemia Requesting Physician: ANKIT Leggett Attending Physician: Rodney Carlin MD History of Present Illness Mr. Rodney Saucedo is an 81-year-old male patient whose PCP is through the [facility], who carries a history ofCOPD, CHF, CKD, CAD, PVD, BPH, CVA, who initially underwent repair for AAA in 2016 who experienced rupture, underwent recent repair at [facility] with IR placement of a PEG tube at the same time. During that hospitalization he also experienced ischemic colitis. He had been discharged and was at a local rehab facility. He was transferred here from the rehab facility due to black bowel movements. On arrival, CTAP with IV contrast with a 17 cm right retroperitoneal hematoma that does not appear to be actively bleeding. There is also question of a sooner pseudoaneurysm in the right femoral artery but Doppler ultrasound did not confirm that. On arrival, hemoglobin was 7.8. He received 1 unit of blood, hemoglobin this morning is 9.0 BUN was initially 52 and this morning is 40. The patient is awake alert oriented, sitting up on the side of the bed this morning. A few minutes ago he had walked with the aid of physical therapy. He does not have any oxygen requirements, he is hemodynamically stable without hypotension or tachycardia. Nursing tells me that he has not had any black bowel movement since arrival. He denies any abdominal pain. He had been on Lovenox and aspirin prior to transfer here which have been held since arrival. He is receiving Protonix IV twice daily. He has been kept NPO. Allergies Allergy/AdvReac Type Severity Reaction Status Date / Time No Known Allergies Allergy Unverified 02/11/22 15:16 Home Medications Medication Instructions Recorded Confirmed Type acetaminophen 650 mg/20.3 mL oral 650 mg PO Q4 PRN 02/08/22 02/11/22 History solution atorvastatin 40 mg tablet 40 mg PO QDD 02/08/22 02/11/22 History finasteride 5 mg tablet 5 mg PO DAILY 02/08/22 02/11/22 History pantoprazole 40 mg granules 40 mg PO BID 02/08/22 02/11/22 History delayed-release for susp in packet (Protonix) polyethylene glycol 3350 17 gram 17 g PO QDD PRN 02/08/22 02/11/22 History oral powder packet sennosides 8.6 mg-docusate sodium 1 tab-cap PO QDD PRN 02/08/22 02/11/22 History 50 mg tablet (Senokot-S) sodium phosphates 19 gram-7 133 ml NC DAILY PRN 02/08/22 02/11/22 History gram/118 mL enema (Enema) tamsulosin 0.4 mg capsule 0.4 mg PO DAILY 02/08/22 02/11/22 History trazodone 50 mg tablet 50 mg PO HS 02/08/22 02/11/22 History bisacodyl 10 mg rectal suppository 10 mg NC DAILY PRN 02/11/22 02/11/22 History docusate sodium 100 mg capsule 100 mg PO BID 02/11/22 02/11/22 History magnesium hydroxide 2,400 mg/10 mL 1,030 ml PO DAILY PRN 02/11/22 02/11/22 History oral suspension (Milk Of Magnesia Concentrated) nystatin 100,000 unit/gram topical 1 applic TOPICAL BID 02/11/22 02/11/22 History cream Patient History Medical History Abdominal aortic aneurysm - with rupture Abdominal pain with vomiting Acute renal failure Aortic aneurysm Aspiration pneumonia BPH (benign prostatic hyperplasia) Chronic kidney disease Chronic kidney disease (CKD) stage 3 Chronic obstructive pulmonary disease Congestive heart failure Coronary artery disease Delirium Hyperlipemia Hypertension Iliac artery aneurysm Ischemic heart disease PEG tube malfunction 01/21/2022 Peripheral vascular disease Peripheral vascular disease Severe malnutrition Surgical History Coronary angioplasty status with stent placements 2019 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 Social History Smoking Status: Former smoker Second Hand Exposure: No; Do You Dip or Chew Tobacco: No; Tobacco Cessation Education Requested by Patient: No Hx Alcohol Use: No Hx Substance Use: No Preferred Language: Belarusian Communication Ability: Effective Finisher Denture Required: No Beliefs That Will Affect Care: None marital status: Current Living Situation: Alone Other Information That Helps Us Care for You: No Feels Safe at Home: Yes Safety Concerns: Feels Safe At This Time Assistive Devices: Cane, Walker and Wheelchair Review of Systems Review of Systems: ROS: Gen: Denies weakness though improving. No fevers + weight loss Eyes: No eye redness, or pain, no recent vision changes Resp: SOB w exertion - reports present since aneurysm repair; no cough Cardio: No palpitations/irregular beats, no chest pain GI: No abdominal pain, no nausea/vomiting : Denies pain on urination Skin: No jaundice, itching or new rashes Physical Exam Constitutional: well developed, + ill appearing, + thin and cooperative Eyes: PERRL, conjunctivae normal, anicteric sclerae Respiratory: normal respiratory effort, lungs clear to auscultation normal respiratory effort and able to speak in complete sentences; no respiratory distress, no labored breathing, does not use accessory muscles and no cough Cardiovascular: RRR, no murmur, no edema Gastrointestinal (Abdomen): normal bowel sounds, soft, nontender, no hepatosplenomegaly PEG tube in epigastrium, no discharge, no leaking or surrounding redness. Rt groin incision well healed, small protuberance. Skin: no rashes, warm and dry normal turgor and + pallor Neurologic: PERRL, EOMI, accommodation nl, no face palsy, no dysarthria awake; not confused Psychiatric: A+Ox3, euthymic affect Orientation: cooperative Lymphatic: no cervical or axillary lymphadenopathy Results & Data ([facility]) Vital Signs (Past 12 Hours) Vital Signs Temp Pulse Pulse Resp BP BP Pulse Ox 02/12/22 08:00 69 02/12/22 07:44 36.6 C 68 18 138/66 96 02/12/22 03:31 36.5 C 71 16 132/68 93 02/11/22 23:39 70 02/11/22 23:22 36.5 C 70 18 130/61 95 02/11/22 23:20 36.5 C 70 16 141/72 H 93 02/11/22 22:20 36.4 C L 72 16 133/60 91 Laboratory Results WBC 6.92, Hb 9, HCT 28, PLT S188, INR 1.1, NA 138, K5.0, CL 108, CO2 27, BUN 40, CR 1.06. Diagnostic Findings CTAP w IV contrast on 02/11/22: 1. 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 2. Status post aortobiiliac grafting with no evidence for leakage from the graft. 3. 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 4. Contracted gallbladder with evidence for pericholecystic edema. Gallbladder ultrasound is recommended for further evaluation. 5. Splenomegaly. 6. Additional nonacute findings are delineated above. (1) Anemia Anemia type: unspecified type Qualified Code(s): D64.9 - Anemia, unspecified
--- NOTE | 2022-02-12 10:56 | Anesthesiology Consultation ---
Date of Service February 12, 2022 History Surgery Operation Date: 02/12/22 15:30 Proposed Procedures p Esophagogastroduodenoscopy Dr Mane - Graeme Mane MD Height/Weight Height: 6 ft Weight: 54.4 kg Allergies Allergy/AdvReac Type Severity Reaction Status Date / Time No Known Allergies Allergy Unverified 02/11/22 15:16 Medications Home Medications Medication Instructions Recorded Confirmed Last Taken acetaminophen 650 mg/20.3 mL oral 650 mg PO Q4 PRN 02/08/22 02/11/22 Unknown solution atorvastatin 40 mg tablet 40 mg PO QDD 02/08/22 02/11/22 Unknown finasteride 5 mg tablet 5 mg PO DAILY 02/08/22 02/11/22 Unknown pantoprazole 40 mg granules 40 mg PO BID 02/08/22 02/11/22 Unknown delayed-release for susp in packet (Protonix) polyethylene glycol 3350 17 gram 17 g PO QDD PRN 02/08/22 02/11/22 Unknown oral powder packet sennosides 8.6 mg-docusate sodium 1 tab-cap PO QDD PRN 02/08/22 02/11/22 Unknown 50 mg tablet (Senokot-S) sodium phosphates 19 gram-[address] DAILY PRN 02/08/22 02/11/22 Unknown gram/118 mL enema (Enema) tamsulosin 0.4 mg capsule 0.4 mg PO DAILY 02/08/22 02/11/22 Unknown trazodone 50 mg tablet 50 mg PO HS 02/08/22 02/11/22 Unknown bisacodyl 10 mg rectal suppository [address] DAILY PRN 02/11/22 02/11/22 Unknown docusate sodium 100 mg capsule 100 mg PO BID 02/11/22 02/11/22 Unknown magnesium hydroxide 2,400 mg/10 mL 1,030 ml PO DAILY PRN 02/11/22 02/11/22 Unknown oral suspension (Milk Of Magnesia Concentrated) nystatin 100,000 unit/gram topical 1 applic TOPICAL BID 02/11/22 02/11/22 Unknown cream Active Medications Generic Name Dose Route Start Last Admin Trade Name Freq PRN Reason Stop Dose Admin Finasteride 5 mg 02/12/22 09:00 02/12/22 08:24 Finasteride 5 Mg Tab PO 03/14/22 08:59 Not Given DAILY PRAVIN Pantoprazole Sodium 40 mg/ 10 mls @ 5 mls/min 02/11/22 21:00 02/12/22 08:23 Syringe IV 03/13/22 20:59 5 mls/min BID PRAVIN Administration Dextrose/Sodium Chloride 1,000 mls @ 80 mls/hr 02/12/22 09:15 02/12/22 09:54 D5w And Nss IV 03/14/22 09:14 80 mls/hr .[id number] PRAVIN Administration Miscellaneous 1 ea 02/12/22 08:59 02/12/22 08:23 Remove Nicoderm Patch N/A 03/14/22 08:58 1 ea DAILY@0859 PRAVIN Administration Nicotine 14 mg 02/11/22 18:47 02/12/22 08:23 Nicotine 14 Mg/24 Hr Patch TD 03/13/22 18:46 14 mg QAM PRAVIN Administration Trazodone HCl 50 mg 02/11/22 21:00 02/11/22 23:46 Trazodone Hcl 50 Mg Tab PO 03/13/22 20:59 50 mg HS PRAVIN Administration Past Medical History Medical History Abdominal aortic aneurysm - with rupture Abdominal pain with vomiting Acute renal failure Aortic aneurysm Aspiration pneumonia BPH (benign prostatic hyperplasia) Chronic kidney disease Chronic kidney disease (CKD) stage 3 Chronic obstructive pulmonary disease Congestive heart failure Coronary artery disease Delirium Hyperlipemia Hypertension Iliac artery aneurysm Ischemic heart disease PEG tube malfunction 01/21/2022 Peripheral vascular disease Peripheral vascular disease Severe malnutrition 81 YOM with past medical history of: AAA with repair following rupture (01/31/22) in the setting of previous AAA repair, ischemic colitis, COPD, CHF, CKD, CAD, PVD, BPH, CVA. Patient is referred from [facility] where he is a resident following his AAA repair with prolonged ICU course and shock in January 2022, for reported 4 days of black dark bowel movements, [facility]8 despite PRBC given on 02/07 and 02/08. His aspirin and Lovenox have been held for the past 24 hours. In the EMD he was started on Protonix drip following bolus, NPO, CTA of the abdomen and pelvis, type and crossed and consented by EMD. Hospitalist service was consulted for admission. The patient is symptomatic from his anemia, with dyspnea at rest and worsening with exertion, dizziness with standing, and feeling more fatigued than when he first got to [facility]. He is stable with his HR and BP at this time, labs are remarkable for slight increase in his BUN to 52 and K 5.2, BUYER LIAISON is stable at 1.03. Skin is warm and pulses are strong, he denies any abdominal pain or nausea and/or vomiting but endorses decreased appetite but tolerating PEG tube feedings. Patient will be admitted to PCU, will obtain large bore IV, kept NPO, continue Protonix drip and consult gastroenterology. Patient has few records here but also does not believe he has ever had an EGD or Colonoscopy. Patient wishes to be DNR/DNI- if this would be emergent for procedure or operation the patient states that he would want intubation for that. 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 Social History Smoking Status: Former smoker Do You Dip or Chew Tobacco: No Hx Alcohol Use: No Hx Substance Use: No Physical Exam Vital Signs Last Vital Signs Temp 36.6 C 02/12/22 07:44 Pulse 69 02/12/22 08:00 Resp 18 02/12/22 07:44 BP 138/66 02/12/22 07:44 Pulse Ox 96 02/12/22 07:44 Testing Laboratory Results 02/12/22 07:17 02/12/22 07:17 PT 11.2 Seconds (9.0-12.0) 02/11/22 16:00 INR 1.1 (0.9-1.1) 02/11/22 16:00 APTT 25.6 Seconds (21.0-31.0) 02/11/22 16:00 Blood Type O Positive 02/11/22 16:00 Antibody Screen NEGATIVE 02/11/22 16:00 Electrocardiogram Date: 02/12/22 Findings: + NSR @ (68) Sinus rhythm with 1st degree A-V block with Premature supraventricular complexes Septal infarct (cited on or before 11-FEB-2022) Abnormal ECG When compared with ECG of 11-FEB-2022 15:23, (unconfirmed) Premature supraventricular complexes are now Present Chest X-Ray Date: 02/11/22 XR chest 1V portable CLINICAL HISTORY: gi bleeding. Evaluate cardiopulmonary status COMPARISON STUDY: No previous studies for comparison. TECHNIQUE: 1 view of the chest FINDINGS: Single frontal view of the chest demonstrates the cardiomediastinal silhouette to be within normal limits. There are patchy, ill-defined alveolar opacities present involving both lungs, left greater than right. This probably represents chronic fibrotic change. However, an early viral type pneumonitis cannot be excluded. Follow-up would be helpful for further evaluation. There is no evidence for pleural effusion. There is no evidence for vascular congestion. There is no acute osseous pathology. There is evidence for an aortic graft in pl evette. IMPRESSION: 1. Patchy ill-defined alveolar opacities involving both lungs, left greater than right. This probably represents chronic fibrotic change. However, early viral type pneumonitis cannot be excluded. Other Testing CT abd pelvis IV con only CLINICAL HISTORY: gi bleeding . Previous aortoiliac bypass. COMPARISON STUDY: No previous studies for comparison. CT DOSE: 292.18 mGy.cm TECHNIQUE: Standard CT of the Abdomen and Pelvis was performed with IV contrast. A dose lowering technique was utilized adhering to the principles of ALARA. Contrast Volume: Optiray 320, 95 ml. The patient did not receive oral contrast. FINDINGS: Lung base: The heart is enlarged with previous aortic valve replacement. There is elevation of the right hemidiaphragm with crowding the bronchovascular markings at the right lung base. Lung bases are otherwise clear. Abdominal cavity: There is no evidence for abdominal mass, adenopathy or ascites. However, there is evidence for a large retroperitoneal hematoma on the right. It has a chronic appearance with no increased attenuation density of the fluid and no contrast extending into the fluid collection. It is behind the right kidney and extends for a craniocaudad distance of approximately 17 cm. There is approximately 8.4 cm in width and 5.2 cm in AP diameter. It has a mildly enhancing wall characteristic of a chronic hematoma. No free abdominal or pelvic fluid is seen. Liver: There is homogeneous attenuation of the liver parenchyma. There is no evidence for enhancing mass lesion. There is mild hepatomegaly. Spleen: There is homogeneous attenuation of the splenic parenchyma. There is no enhancing mass lesion. There is mild splenomegaly. Pancreas: There is homogeneous attenuation of the pancreatic parenchyma. There is no evidence for mass lesion or peripancreatic fluid collection. Gall Bladder: The gallbladder is partially contracted. There appears to be pericholecystic edema present. Follow-up gallbladder ultrasound is recommended for further evaluation. Adrenal glands: The adrenal glands are normal in size and attenuation. There is no evidence for enhancing mass lesion. Kidneys: There is homogeneous attenuation of the renal parenchyma bilaterally. There is moderate hydronephrosis and hydroureter on the right to the level of the retroperitoneal hematoma. This is most likely compressing the distal ureter. No renal calculi are seen. There is no evidence for left-sided hydronephrosis or hydroureter. Bilateral renal cysts are present. No enhancing renal masses are identified. Bowel: A PEG tube is in place. The bowel loops are normally placed within the abdomen and pelvis without evidence for dilatation or obstruction. There is no evidence for mass lesion. There are no inflammatory changes present. There is no evidence for free air. Bladder: The bladder is distended with no evidence for focal mass, calculus or diverticulum. There is diffuse thickening of bladder wall characteristic of chronic bladder outlet obstruction. : There is no evidence for pelvic mass or adenopathy. There is no evidence for pelvic ascites. The prostate is mildly to moderately large. Vasculature: There is an aortobiiliac graft in place for a large abdominal aortic aneurysm. There is no evidence for leakage of contrast outside the stent. 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 The stent is in place extending through the dilatation. Additionally, there is a fluid collection seen surrounding the proximal right femoral artery. This measures approximately 3.9 x 3.5 cm and is suspicious for pseudoaneurysm. Ultrasound could be obtained for further evaluation. There is no contrast present within this fluid collection. Osseous structures: There is no acute osseous pathology. The patient is status post previous internal fixation right femoral neck. Degenerative changes are present within the spine. IMPRESSION: 1. 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 2. Status post aortobiiliac grafting with no evidence for leakage from the graft. 3. 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 4. Contracted gallbladder with evidence for pericholecystic edema. Gallbladder ultrasound is recommended for further evaluation. 5. Splenomegaly. 6. Additional nonacute findings are delineated above.
--- NOTE | 2022-02-12 11:32 | Hospitalist Progress Note ---
Date of Service February 12, 2022 Assessment & Plan (1) GI bleed: Plan: GI Bleed , probable upper GI source producing melena. Aspirin and Lovenox are on hold. GI consultation appreciated. Awaiting endoscopic evaluation later today, February 12. Currently on Protonix drip. Recent GI surgery noted with endovascular AAA repair. (2) Blood loss anemia: Plan: Acute, due to GI bleed. Serial lab studies. Transfuse as necessary. (3) CKD (chronic kidney disease), stage III: Plan: Stable. Monitor intake and output. Serial labs. Avoid nephrotoxic agents. (4) Abnormal CT of the abdomen: Plan: Suspected pseudoaneurysm of the right femoral artery. No evidence of bleeding. (5) Abdominal aortic aneurysm: Plan: Repair reported 2015 and in February 09 presented to [facility] with rupture and shock. Subsequently repaired. Lovenox currently on hold due to GI bleeding. (6) Hyperlipemia: Plan: Continue statin (7) Severe malnutrition: Plan: BMI 18- tolerating minced and moist diet per [facility] notes as well as PEG tube support feeding. Will resume following GI evaluation . NPO for now (8) Coronary artery disease: Plan: Holding aspirin due to GI bleeding. table. Medical management (9) Congestive heart failure: Plan: Suspected chronic diastolic. Currently stable. Monitor intake and output. (10) BPH (benign prostatic hyperplasia): Plan: Holding tamsulosin temporarily. Continue Finasteride (11) Severe muscle deconditioning: Plan: PT/OT/ nutritional support. Post extensive ICU stay Plan: Disposition: Eventual discharge to home Admission and Anticipated Discharge Date Admission Date: February 11, 2022 Subjective Alert and oriented. He is awaiting endoscopic evaluation for his GI bleed which appears to be from an upper source since he has melena. He states he has receiv ed a total of 3 units packed red blood cells since admission. Hemoglobin is 9.0. Continue IV fluids while n.p.o. Review of Systems Review of Systems: Constitutional-no fever or chills ENT-no blurred vision, no double vision, no epistaxis, no sore throat Respiratory-no cough, no wheezing, no shortness of breath Cardiac-no palpitations, no chest pain, no syncope GI-no nausea, vomiting, diarrhea, hematochezia. Melena for several days as described above -no urinary retention, no urinary incontinence, no dysuria, no hematuria Musculoskeletal-no joint pain, no muscle tenderness Skin-no bruising, no rashes, no pruritus Neuro-no isolated weakness, no paresthesia, no weakness Psych-no depression, no anxiety Physical Exam Physical Exam: General-alert and oriented x3, no fevers, no chills HEENT-head atraumatic and normocephalic, TMs intact bilaterally, pupils equal and reactive to light, extraocular muscles intact Neck-no lymphadenopathy or thyromegaly, trachea midline Chest-clear to auscultation percussion. No rales wheezing or rhonchi Cardiac-regular rate and rhythm, normal S1 and S2, no murmurs Abdomen-normal bowel sounds, nontender, no hepatosplenomegaly Extremities-no cyanosis, clubbing, or edema Neuro-cranial nerves II through XII intact, motor and sensory function within normal limits, strength symmetrical , no focal deficits Psych-normal affect, normal mood Results & Data Results & Data ([facility]) Vital Signs (Past 12 Hours) Vital Signs Temp Pulse Pulse Resp BP Pulse Ox 02/12/22 08:00 69 02/12/22 07:44 36.6 C 68 18 138/66 96 02/12/22 03:31 36.5 C 71 16 132/68 93 02/11/22 23:39 70 Laboratory Results 02/12/22 07:17 02/12/22 07:17 PG Care Time/CCT Total # of Minutes Spent Total Time Spent with Patient: Total time spent is greater than 50% in coordination of care (as documented) at patient's floor/unit and/or counseling patient: Coding Level of Care Code 28670 Subseq Hosp Care Lvl 3 Diagnoses GI bleed K92.2 Blood loss anemia D50.0 CKD (chronic kidney disease), stage III N18.[address] of the abdomen R93.5 Abdominal aortic aneurysm I71.4 Hyperlipemia E78.5 Severe malnutrition E43 Coronary artery disease I25.10 Congestive heart failure I50.9 BPH (benign prostatic hyperplasia) N40.0 Severe muscle deconditioning R29.898
--- NOTE | 2022-02-12 13:34 | Electrocardiogram Report ---
Test Reason : Blood Pressure : / mmHG Vent. Rate : 068 BPM Atrial Rate : 068 BPM P-R Int : 264 ms QRS Dur : 102 ms QT Int : 420 ms P-R-T Axes : 074 067 088 degrees QTc Int : 446 ms Sinus rhythm with 1st degree A-V block with Premature supraventricular complexes Abnormal ECG When compared with ECG of 11-FEB-2022 15:23, (unconfirmed) Premature supraventricular complexes are now Present Confirmed by Alejandro Apodaca ([id number]) on 02/12/2022 1:34:41 PM Referred By: REFERRED SELF Confirmed By:Lester Apodaca
--- NOTE | 2022-02-12 13:44 | Electrocardiogram Report ---
Test Reason : Blood Pressure : / mmHG Vent. Rate : 083 BPM Atrial Rate : 083 BPM P-R Int : 314 ms QRS Dur : 096 ms QT Int : 378 ms P-R-T Axes : 079 057 080 degrees QTc Int : 444 ms Sinus rhythm with 1st degree A-V block Abnormal ECG No previous ECGs available Confirmed by Alejandro Apodaca ([id number]) on 02/12/2022 1:43:43 PM Referred By: REFERRED SELF Confirmed By:Lester Apodaca
[2022-02-12] MEDS ORDERED: LIDOCAINE 2% 2 ML VIAL/AMP(20MG/ML) INFIL ONE (14:48)
[2022-02-12] MEDS ORDERED: PROPOFOL IV EMULSION 10 MG/ML 20 ML VIAL IV ONE ×2 (14:48→15:35)
--- NOTE | 2022-02-12 15:54 | GI REPORT ---
Patient Name: Rodney Saucedo Procedure Date: 02/12/2022 2:59 PM Date of : 1940 Admit Type: Inpatient Age: 81 Gender: Male Attending MD: Graeme Mane MD Procedure: Upper GI endoscopy Providers: Graeme Mane MD Referring MD: Rodney Carlin Indications: Melena Medicines: Propofol per Anesthesia Complications: No immediate complications. Estimated Blood Loss: Estimated blood loss: none. Procedure: Pre-Anesthesia Assessment: - Prior to the procedure, a History and Physical was performed, and patient medications, allergies and sensitivities were reviewed. The patient's tolerance of previous anesthesia was reviewed. - Patient identification and proposed procedure were verified prior to the procedure by the physician and the nurse. The procedure was verified in the procedure room. - Pre-procedure physical examination revealed no contraindications to sedation. - The alternatives, risks and benefits of the procedure were discussed at length with the patient's daughter. The patient's proxy verbalized understanding of the risks as well as the alternatives and wished to proceed with the procedure. After obtaining informed consent, the endoscope was passed under direct vision. Throughout the procedure, the patient's blood pressure, pulse, and oxygen saturations were monitored continuously. The Endoscope was introduced through the mouth, and advanced to the third part of duodenum. The upper GI endoscopy was accomplished without difficulty. The patient tolerated the procedure well. Findings: The examined esophagus was normal. There was evidence of an intact gastrostomy with a patent G-tube present in the gastric body. This was characterized by healthy appearing mucosa. Few oozing linear gastric erosions/ superficial ulcers were found in the gastric body with surrounding friable gastric mucosa. For hemostasis, two hemostatic clips were successfully placed (MR conditional). Area was successfully injected with 8 mL of a 1:10,000 solution of epinephrine for hemostasis. For hemostasis, hemostatic spray was deployed. Multiple sprays were applied. There was no bleeding at the end of the procedure. A single small angioectasia without bleeding was found in the third portion of the duodenum. Vaporization for hemostasis using argon plasma was successful. For hemostasis, one hemostatic clip was successfully placed (MR conditional). Impression: - Normal esophagus. - Intact gastrostomy with a patent G-tube present characterized by healthy appearing mucosa. - Oozing superficial gastric erosions/ulcers with friable gastric mucosa. Clips (MR conditional) were placed and Epinephrine was injected however in view of coagulopathy, mild oozing continued hence hemostatic spray applied and this achieved hemostasis. - A single non-bleeding angioectasia in the duodenum. Treated with argon plasma coagulation (APC). Clip (MR conditional) was placed. - No specimens collected. Recommendation: - Return patient to [facility] for ongoing care. - NPO today then clear liquids tomorrow. - No aspirin, ibuprofen, naproxen, or other non-steroidal anti-inflammatory drugs. - IV PPI for 2 days then PO BID. - Hold Anticoagulation/ Antiplatelets for 3 days. - Monitor H/H, transfuse as needed. Graeme Mane MD 02/12/2022 3:54:13 PM This report has been signed electronically. Note Initiated On: 02/12/2022 2:59 PM Number of Addenda: 0 I attest to the content of the Intraoperative Record and orders documented therein, exceptions below {[id number]}
[2022-02-12] MEDS ORDERED: ATROPINE SULFATE 0.1 MG/ML 10ML SYR IV PRN (16:09)
[2022-02-12] MEDS ORDERED: ePHEDrine sulfate 50 MG/ML AMP IV PRN (16:09)
[2022-02-12] MEDS ORDERED: fentaNYL citrate 100 MCG/2 ML VIAL IV PRN (16:09)
[2022-02-12] MEDS ORDERED: fentaNYL citrate 100 MCG/2 ML VIAL ONE (16:11)
--- NOTE | 2022-02-12 16:22 | Anesthesiology Progress Note ---
Date of Service February 12, 2022 Anesthesia Post Procedure Vital Signs Vital Signs: Temp Pulse Pulse Resp BP BP Pulse Ox 02/12/22 15:56 69 20 151/75 H 92 02/12/22 15:41 69 16 160/75 H 95 02/12/22 14:37 37 C 67 20 161/86 H 97 02/12/22 11:25 36.6 C 71 15 135/66 95 02/12/22 08:00 69 02/12/22 07:44 36.6 C 68 18 138/66 96 02/12/22 03:31 36.5 C 71 16 132/68 93 02/11/22 23:39 70 02/11/22 23:22 36.5 C 70 18 130/61 95 02/11/22 23:20 36.5 C 70 16 141/72 H 93 02/11/22 22:20 36.4 C L 72 16 133/60 91 02/11/22 21:20 36.5 C 74 18 116/64 95 02/11/22 20:59 36.5 C 80 16 143/67 H 95 02/11/22 20:50 36.5 C 80 18 118/55 L 97 02/11/22 20:35 37.1 C 76 18 122/58 L 97 02/11/22 20:12 36.5 C 79 18 126/59 L 98 02/11/22 19:57 36.5 C 78 18 133/71 98 02/11/22 18:44 80 16 143/67 H 95 02/11/22 16:37 79 18 130/70 95 Pain Intensity Lower Abdomen: Pain Intensity: 3 Transfer of Care Handoff Completed per policy Notes Mental Status: alert / awake / arousable Patient Amnestic to Procedure: Yes Nausea / Vomiting: adequately controlled Pain: adequately controlled Airway Patency, RR, SpO2: stable & adequate BP & HR: stable & adequate Hydration State: stable & adequate Anesthetic Complications: no major complications apparent and Pt Satisfied with anesthetic care Notes: The patient is awake and his vital signs are stable. He had three gastric ulcers that were clipped and injected with epinephrine that resulted in some post-procedure abdominal pain. He was given some fentanyl that helped with the pain.
[2022-02-12] MEDS: ATORVASTATIN 40 MG TAB PO SCH (17:28)
[2022-02-12] MEDS: traZODone HCL 50 MG TAB PO SCH ×2 (20:22→21:00)
[2022-02-13] MEDS: D5W AND NSS 1,000 ML IV SCH ×2 (01:16→13:56)
[2022-02-13 06:38] LABS: Basophils # (auto) 0.02 K/uL (0-0.2); Basophils % (auto) 0.2 %; Eosinophils # (auto) 0.03 K/uL (0-0.5); Eosinophils % (auto) 0.3 %; Hematocrit (blood only) 31.6 % (42-52); Hemoglobin 9.9 g/dL (14.0-18.0); Immature Granulocytes # (auto) 0.07 K/uL (0.00-0.02); Immature Granulocytes % (auto) 0.6 %; Lymphocytes # (auto) 1.21 K/uL (1.2-3.4); Mean Corpuscular Hemoglobin 32.4 pg (25-34); Mean Corpuscular Hgb Conc 31.3 g/dL (32-36); Mean Corpuscular Volume 103.3 fL (80-100); Mean Platelet Volume 9.6 fL (7.4-10.4); Monocytes # (auto) 0.72 K/uL (0.11-0.59); Monocytes % (auto) 6.5 %; Neutrophils # (auto) 8.99 K/uL (1.4-6.5); Neutrophils % (auto) 81.4 %; Platelet Count 201 K/uL (130-400); RDW Coefficient of Variation 20.2 % (11.5-14.5); Red Blood Count 3.06 M/uL (4.7-6.1); White Blood Count 11.04 K/uL (4.8-10.8)
[2022-02-13 07:03] LABS: BUN Creatinine Ratio 32.4 (10-20); Calcium 8.1 mg/dl (8.5-10.1); Est GFR (African American) 76.2 ml/min; Est GFR (Non-African American) 65.8 ml/min; Potassium 4.2 mmol/L (3.5-5.1)
[2022-02-13 07:19] LABS: Anisocytosis Present
[2022-02-13] MEDS: FINASTERIDE 5 MG TAB PO SCH (08:23)
[2022-02-13] MEDS: PANTOprazole 40 MG in SYRINGE 0 ML IV SCH ×2 (08:40→21:44)
[2022-02-13] MEDS: NICOTINE 14 MG/24 HR PATCH TD SCH (08:40)
--- NOTE | 2022-02-13 12:16 | Hospitalist Progress Note ---
Date of Service February 13, 2022 Assessment & Plan (1) GI bleed: Plan: GI Bleed , upper GI source producing melena. Aspirin and Lovenox are on hold. GI consultation appreciated. 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 Hemoglobin is stable. He does have some residual melena which will eventually clear. He is now on a clear liquid diet and IV fluids have been tapered down. Carafate added to Protonix. OT and PT assessments requested. (2) Blood loss anemia: Plan: Acute, due to GI bleed. Serial lab studies. Transfuse as necessary. Stable (3) CKD (chronic kidney disease), stage III: Plan: Stable. Monitor intake and output. Serial labs. Avoid nephrotoxic agents. (4) Abnormal CT of the abdomen: Plan: Ultrasound reveals a seroma. No evidence of pseudoaneurysm. (5) Abdominal aortic aneurysm: Plan: Repair reported 2015 and in February 09 presented to [facility] with rupture and shock. Subsequently repaired. Lovenox currently on hold due to GI bleeding. (6) Hyperlipemia: Plan: Continue statin (7) Severe malnutrition: Plan: BMI 18- tolerating minced and moist diet per [facility] notes as well as PEG tube support feeding. Clear liquid diet started today, February 13. (8) Coronary artery disease: Plan: Holding aspirin due to GI bleeding. Stable. Medical management (9) Congestive heart failure: Plan: Suspected chronic diastolic. Currently stable. Monitor intake and output. (10) BPH (benign prostatic hyperplasia): Plan: Holding tamsulosin temporarily. Continue Finasteride (11) Severe muscle deconditioning: Plan: PT/OT/ nutritional support. Post extensive ICU stay Plan: Disposition: Eventual discharge back to [facility]. Admission and Anticipated Discharge Date Admission Date: February 11, 2022 Subjective Alert and oriented. Medically stable. EGD was completed February 12 and revealed a gastric ulcer which was clipped and injected. There was also duodenal [place] e ctasia which was lasered. Carafate added to Protonix. Diet advanced to clear liquids. IV fluids taper down. OT and PT assessments requested. He will eventually return to [facility] where he came from. Review of Systems Review of Systems: Constitutional-no fever or chills ENT-no blurred vision, no double vision, no epistaxis, no sore throat Respiratory-no cough, no wheezing, no shortness of breath Cardiac-no palpitations, no chest pain, no syncope GI-no nausea, vomiting, diarrhea, hematochezia. Melena may last for a few more days but hemoglobin is stable and no evidence of active GI bleeding -no urinary retention, no urinary incontinence, no dysuria, no hematuria Musculoskeletal-no joint pain, no muscle tenderness Skin-no bruising, no rashes, no pruritus Neuro-no isolated weakness, no paresthesia, no weakness Psych-no depression, no anxiety Physical Exam Physical Exam: General-alert and oriented x3, no fevers, no chills HEENT-head atraumatic and normocephalic, TMs intact bilaterally, pupils equal and reactive to light, extraocular muscles intact Neck-no lymphadenopathy or thyromegaly, trachea midline Chest-clear to auscultation percussion. No rales wheezing or rhonchi Cardiac-regular rate and rhythm, normal S1 and S2, no murmurs Abdomen-normal bowel sounds, nontender, no hepatosplenomegaly Extremities-no cyanosis, clubbing, or edema Neuro-cranial nerves II through XII intact, motor and sensory function within normal limits, strength symmetrical , no focal deficits Psych-normal affect, normal mood Results & Data Results & Data ([facility]) Vital Signs (Past 12 Hours) Vital Signs Temp Pulse Resp BP Pulse Ox 02/13/22 08:13 36.4 C L 81 16 144/70 H 94 02/13/22 03:23 36.6 C 87 18 136/82 96 Laboratory Results 02/13/22 06:11 02/13/22 06:11 PG Care Time/CCT Total # of Minutes Spent Total Time Spent with Patient: Total time spent is greater than 50% in coordination of care (as documented) at patient's floor/unit and/or counseling patient: Coding Level of Care Code 64018 Subseq Hosp Care Lvl 3 Diagnoses GI bleed K92.2 Blood loss anemia D50.0 CKD (chronic kidney disease), stage III N18.[address] of the abdomen R93.5 Abdominal aortic aneurysm I71.4 Hyperlipemia E78.5 Severe malnutrition E43 Coronary artery disease I25.10 Congestive heart failure I50.9 BPH (benign prostatic hyperplasia) N40.0 Severe muscle deconditioning R29.898
[2022-02-13] MEDS: SUCRALFATE 1 GM TAB PO SCH ×3 (12:17→21:43)
[2022-02-13] MEDS: ATORVASTATIN 40 MG TAB PO SCH (15:46)
[2022-02-13] MEDS: traZODone HCL 50 MG TAB PO SCH (21:44)
[2022-02-14] MEDS: D5W AND NSS 1,000 ML IV SCH (01:29)
[2022-02-14 07:05] LABS: Basophils # (auto) 0.01 K/uL (0-0.2); Basophils % (auto) 0.1 %; Eosinophils # (auto) 0.18 K/uL (0-0.5); Eosinophils % (auto) 2.5 %; Hematocrit (blood only) 29.6 % (42-52); Hemoglobin 9.3 g/dL (14.0-18.0); Immature Granulocytes # (auto) 0.05 K/uL (0.00-0.02); Immature Granulocytes % (auto) 0.7 %; Lymphocytes # (auto) 1.06 K/uL (1.2-3.4); Lymphocytes % (auto) 14.9 %; Mean Corpuscular Hemoglobin 32.4 pg (25-34); Mean Corpuscular Hgb Conc 31.4 g/dL (32-36); Mean Corpuscular Volume 103.1 fL (80-100); Mean Platelet Volume 8.7 fL (7.4-10.4); Monocytes # (auto) 0.62 K/uL (0.11-0.59); Monocytes % (auto) 8.7 %; Neutrophils % (auto) 73.1 %; Platelet Count 181 K/uL (130-400); RDW Coefficient of Variation 19.1 % (11.5-14.5); RDW Standard Deviation 71.8 fL (36.4-46.3); Red Blood Count 2.87 M/uL (4.7-6.1); White Blood Count 7.12 K/uL (4.8-10.8)
[2022-02-14 07:31] LABS: BUN Creatinine Ratio 22.3 (10-20); Calcium 7.9 mg/dl (8.5-10.1); Est GFR (African American) 87.2 ml/min; Est GFR (Non-African American) 75.2 ml/min
[2022-02-14] MEDS: FINASTERIDE 5 MG TAB PO SCH (08:24)
[2022-02-14] MEDS: SUCRALFATE 1 GM TAB PO SCH ×4 (08:24→20:47)
[2022-02-14] MEDS: NICOTINE 14 MG/24 HR PATCH TD SCH (08:24)
[2022-02-14] MEDS: PANTOprazole 40 MG in SYRINGE 0 ML IV SCH ×2 (08:24→20:47)
--- NOTE | 2022-02-14 11:57 | Hospitalist Progress Note ---
Date of Service February 14, 2022 Assessment & Plan (1) GI bleed: Plan: GI Bleed , upper GI source producing melena. Aspirin and Lovenox are on hold. GI consultation appreciated. 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 Hemoglobin is now stable. He does have some residual melena which will eventually clear. Clear liquid diet advance to full liquids and IV fluids discontinued today, February 14. Continue Carafate and Protonix. (2) Blood loss anemia: Plan: Acute, due to GI bleed. Serial lab studies. Transfuse as necessary. Stable. He received 3 units total packed red blood cells this admission (3) CKD (chronic kidney disease), stage III: Plan: Stable. Monitor intake and output. Serial labs. Avoid nephrotoxic agents. (4) Abnormal CT of the abdomen: Plan: Ultrasound reveals a seroma. No evidence of pseudoaneurysm. (5) Abdominal aortic aneurysm: Plan: Repair in 2015 and again in February 09 when he presented to [facility] [place] with rupture and shock. Subsequently repaired. Lovenox currently on hold due to GI bleeding. (6) Hyperlipemia: Plan: Continue statin (7) Severe malnutrition: Plan: BMI 18- tolerating minced and moist diet per [facility] notes as well as PEG tube support feeding. Now on full liquid diet. Advance as tolerated . (8) Coronary artery disease: Plan: Holding aspirin due to GI bleeding. Stable. Medical management (9) Congestive heart failure: Plan: Suspected chronic diastolic. Currently stable. Monitor intake and output. (10) BPH (benign prostatic hyperplasia): Plan: Holding tamsulosin temporarily. Continue Finasteride (11) Severe muscle deconditioning: Plan: PT/OT/ nutritional support. Post extensive ICU stay Plan: Disposition: Eventual discharge back to [facility]. Hopefully tomorrow, February 15 Admission and Anticipated Discharge Date Admission Date: February 11, 2022 Subjective Alert and oriented. He is doing well. IV fluids discontinued and diet advanced to full liquids. I suspect he will be advanced to a regular diet tomorrow and t hen return to [facility] February 15. Review of Systems Review of Systems: Constitutional-no fever or chills ENT-no blurred vision, no double vision, no epistaxis, no sore throat Respiratory-no cough, no wheezing, no shortness of breath Cardiac-no palpitations, no chest pain, no syncope GI-no nausea, vomiting, diarrhea, melena, hematochezia -no urinary retention, no urinary incontinence, no dysuria, no hematuria Musculoskeletal-no joint pain, no muscle tenderness Skin-no bruising, no rashes, no pruritus Neuro-no isolated weakness, no paresthesia, no weakness Psych-no depression, no anxiety Physical Exam Physical Exam: General-alert and oriented x3, no fevers, no chills HEENT-head atraumatic and normocephalic, TMs intact bilaterally, pupils equal and reactive to light, extraocular muscles intact Neck-no lymphadenopathy or thyromegaly, trachea midline Chest-clear to auscultation percussion. No rales wheezing or rhonchi Cardiac-regular rate and rhythm, normal S1 and S2, no murmurs Abdomen-normal bowel sounds, nontender, no hepatosplenomegaly Extremities-no cyanosis, clubbing, or edema Neuro-cranial nerves II through XII intact, motor and sensory function within normal limits, strength symmetrical , no focal deficits Psych-normal affect, normal mood Results & Data Results & Data ([facility]) Vital Signs (Past 12 Hours) Vital Signs Temp Pulse Pulse Resp BP Pulse Ox 02/14/22 08:00 36.8 C 79 76 16 124/62 96 02/14/22 05:39 36.6 C 80 24 152/65 H 95 Laboratory Results 02/14/22 06:54 02/14/22 06:54 PG Care Time/CCT Total # of Minutes Spent Total Time Spent with Patient: Total time spent is greater than 50% in coordination of care (as documented) at patient's floor/unit and/or counseling patient: Coding Level of Care Code 74721 Subseq Hosp Care Lvl 3 Diagnoses GI bleed K92.2 Blood loss anemia D50.0 CKD (chronic kidney disease), stage III N18.[address] of the abdomen R93.5 Abdominal aortic aneurysm I71.4 Hyperlipemia E78.5 Severe malnutrition E43 Coronary artery disease I25.10 Congestive heart failure I50.9 BPH (benign prostatic hyperplasia) N40.0 Severe muscle deconditioning R29.898
[2022-02-14] MEDS: ATORVASTATIN 40 MG TAB PO SCH (17:25)
[2022-02-14] MEDS: traZODone HCL 50 MG TAB PO SCH (20:47)
[2022-02-15 06:28] LABS: Basophils # (auto) 0.01 K/uL (0-0.2); Basophils % (auto) 0.1 %; Eosinophils # (auto) 0.25 K/uL (0-0.5); Eosinophils % (auto) 3.3 %; Hematocrit (blood only) 30.1 % (42-52); Hemoglobin 9.3 g/dL (14.0-18.0); Immature Granulocytes # (auto) 0.04 K/uL (0.00-0.02); Immature Granulocytes % (auto) 0.5 %; Lymphocytes # (auto) 1.31 K/uL (1.2-3.4); Mean Corpuscular Hemoglobin 32.1 pg (25-34); Mean Corpuscular Hgb Conc 30.9 g/dL (32-36); Mean Corpuscular Volume 103.8 fL (80-100); Mean Platelet Volume 9.1 fL (7.4-10.4); Monocytes # (auto) 0.73 K/uL (0.11-0.59); Monocytes % (auto) 9.5 %; Neutrophils # (auto) 5.35 K/uL (1.4-6.5); Neutrophils % (auto) 69.6 %; Platelet Count 174 K/uL (130-400); RDW Coefficient of Variation 18.3 % (11.5-14.5); RDW Standard Deviation 69.4 fL (36.4-46.3); White Blood Count 7.69 K/uL (4.8-10.8)
[2022-02-15 06:58] LABS: BUN Creatinine Ratio 18.8 (10-20); Creatinine Clr Calc Pharmacy 49.2 ml/min; Est GFR (Non-African American) 73.3 ml/min; Potassium 4.3 mmol/L (3.5-5.1)
[2022-02-15] MEDS: FINASTERIDE 5 MG TAB PO SCH (08:11)
[2022-02-15] MEDS: SUCRALFATE 1 GM TAB PO SCH ×3 (08:11→16:46)
[2022-02-15] MEDS: NICOTINE 14 MG/24 HR PATCH TD SCH (08:11)
[2022-02-15] MEDS: PANTOprazole 40 MG in SYRINGE 0 ML IV SCH (08:12)
[2022-02-15] MEDS: ATORVASTATIN 40 MG TAB PO SCH (16:46)
--- NOTE | 2022-02-15 17:23 | Discharge Summary ---
Date of Service February 15, 2022 Admission HPI Per Admitting Provider 81 YOM with past medical history of: AAA with repair following rupture (01/31/22) in the setting of previous AAA repair, ischemic colitis, COPD, CHF, CKD, CAD, PVD, BPH, CVA. Patient is referred from [facility] where he is a resident following his AAA repair with prolonged ICU course and shock in January 2022, for reported 4 days of black dark bowel movements, anemia with decreasing hgb at [facility] from 8.1 to 7.8 despite PRBC given on 02/07 and 02/08. His aspirin and Lovenox have been held for the past 24 hours. In the EMD he was started on Protonix drip following bolus, NPO, CTA of the abdomen and pelvis, type and crossed and consented by EMD. Hospitalist service was consulted for admission. The patient is symptomatic from his anemia, with dyspnea at rest and worsening with exertion, dizziness with standing, and feeling more fatigued than when he first got to [facility]. He is stable with his HR and BP at this time, labs are remarkable for slight increase in his BUN to 52 and K 5.2, INSOLE PRESSER is stable at 1.03. Skin is warm and pulses are strong, he denies any abdominal pain or nausea and/or vomiting but endorses decreased appetite but tolerating PEG tube feedings. Patient will be admitted to PCU, will obtain large bore IV, kept NPO, continue Protonix drip and consult gastroenterology. Patient has few records here but also does not believe he has ever had an EGD or Colonoscopy. Patient wishes to be DNR/DNI- if this would be emergent for procedure or operation the patient states that he would want intubation for that. COVID test on admission is: NEGATIVE Discharge Data Allergies Allergy/AdvReac Type Severity Reaction Status Date / Time No Known Allergies Allergy Unverified 02/12/22 14:36 Consultations 02/11/22 16:41 ED Decision to Admit Stat 02/11/22 18:47 Consult Gastroenterology Routine Procedures Performed Operation Date: 02/12/22 15:30 Actual Procedures p EGD Hemostasis - Graeme Mane MD Ordered Studies 02/11/22 15:41 CT abd pelvis IV con only Stat 02/11/22 18:38 US arterial duplex LE RT Stat Hospital Course (1) GI bleed: GI Bleed , upper GI source producing melena. Aspirin and Lovenox are on hold. GI consultation appreciated. 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 Hemoglobin is now stable. He does have some residual melena which will eventually clear. Clear liquid diet advance to full liquids and IV fluids discontinued today, February 14. Continue Carafate and Protonix. (2) Blood loss anemia: Acute, due to GI bleed. Serial lab studies. Transfuse as necessary. Stable. He received 3 units total packed red blood cells this admission (3) CKD (chronic kidney disease), stage III: Stable. Monitor intake and output. Serial labs. Avoid nephrotoxic agents. (4) Abnormal CT of the abdomen: Ultrasound reveals a seroma. No evidence of pseudoaneurysm. (5) Abdominal aortic aneurysm: Repair in 2015 and again in February 09 when he presented to [facility] [place] with rupture and shock. Subsequently repaired. Lovenox currently on hold due to GI bleeding. (6) Hyperlipemia: Continue statin (7) Severe malnutrition: BMI 18- tolerating minced and moist diet per [facility] notes as well as PEG tube support feeding. Now on full liquid diet. Advance as tolerated . (8) Coronary artery disease: Holding aspirin due to GI bleeding. Stable. Medical management (9) Congestive heart failure: Suspected chronic diastolic. Currently stable. Monitor intake and output. (10) BPH (benign prostatic hyperplasia): Holding tamsulosin temporarily. Continue Finasteride (11) Severe muscle deconditioning: PT/OT/ nutritional support. Post extensive ICU stay Disposition: Eventual discharge back to [facility]. Hopefully tomorrow, February 15 Discharge Plan Discharge Items Reason For Visit: GI BLEED, ANEMIA Condition on Discharge: Fair Follow-up/Referrals: [facility],Hospital [Primary Care Provider] - Medications and DC Order Prescriptions: No Action atorvastatin 40 mg Tablet 40 mg PO QDD RF: 0 tamsulosin 0.4 mg Capsule 0.4 mg PO DAILY RF: 0 trazodone 50 mg Tablet 50 mg PO HS RF: 0 acetaminophen 650 mg/20.3 mL Solution 650 mg PO Q4 PRN (Reason: Pain) RF: 0 finasteride 5 mg Tablet 5 mg PO DAILY RF: 0 polyethylene glycol 3350 [GlycoLax] 17 gram Powder In Packet 17 g PO QDD PRN (Reason: Constipation) RF: 0 Enema 19-7 gram/118 mL Enema 133 ml PA DAILY PRN (Reason: Constipation) RF: 0 pantoprazole [Protonix] [address] For Susp In Packet 40 mg PO BID RF: 0 sennosides-docusate sodium [Senokot-S] 8.6-50 mg Tablet 1 tab-cap PO QDD PRN (Reason: Constipation) RF: 0 docusate sodium 100 mg Capsule 100 mg PO BID RF: 0 nystatin 100,000 unit/gram Cream 1 applic TOPICAL BID RF: 0 magnesium hydroxide [Milk Of Magnesia Concentrated] 2,400 mg/10 mL Suspension 1,030 ml PO DAILY PRN (Reason: Constipation) RF: 0 bisacodyl 10 mg Suppository 10 mg PA DAILY PRN (Reason: Constipation) RF: 0 Admission Data Admit Date/Time: 02/11/22 17:26 Attending Provider: Paras Dean Admit Provider: Levi Peters Primary Care Provider: [facility] Other Providers: Levi Peters ; Graeme Mane ; [facility] Coding Diagnoses GI bleed K92.2 Blood loss anemia D50.0 CKD (chronic kidney disease), stage III N18.[address] of the abdomen R93.5 Abdominal aortic aneurysm I71.4 Hyperlipemia E78.5 Severe malnutrition E43 Coronary artery disease I25.10 Congestive heart failure I50.9 BPH (benign prostatic hyperplasia) N40.0 Severe muscle deconditioning R29.898
== END 2022-02-15 18:35 | DRG 377 ==
LOC: ED 14:42 → 2E 17:26 → SUATTDRO 17:26 → 2E 18:20